=== PATIENT | male | born 1960 | race Two or more races ===

== ENCOUNTER 2024-06-02 19:48 | Emergency (ER) | payer BC ==
[~2024-06-02] VITALS: Ht 152.4 cm; Wt 99.8 kg
[2024-06-02] MEDS ORDERED: COZAAR50 MG PO (20:00)
[2024-06-02] MEDS ORDERED: ACETAMINOPHEN WITH CODEINE 1 UDTAB TABLET PO ONE (20:45)
[2024-06-02] MEDS ORDERED: ORPHENADRINE CITRATE 100 MG TABLET PO ONE (20:45)
== END 2024-06-02 23:22 | disposition home or self-care (01) ==
LOC: ER 19:48
DX: S76.911A Strain of unspecified muscles, fascia and tendons at thigh level, right thigh, initial encounter (principal); W18.39XA Other fall on same level, initial encounter; Y93.89 Activity, other specified; Y92.89 Other specified places as the place of occurrence of the external cause; I10 Essential (primary) hypertension